=== PATIENT | female | born 1960 ===

== ENCOUNTER 2017-07-15 20:40 | Emergency (ER) | payer MEDICAID ==
[2017-07-15 20:40] VITALS: BMI 40.0
[2017-07-15 20:46] VITALS: TEMP 98
[2017-07-15] MEDS ORDERED: Oxycodone/Acetaminophen 5/325 mg Tab PO STA (21:03)
[2017-07-15] MEDS ORDERED: Oxycodone/Acetaminophen 5/325 mg Tab ONE (21:31)
[2017-07-15 22:05] LABS: BASO # 0.1 K/uL (0.0-0.2); BASO % 0.6 % (0.0-2.0); EOS # 0.1 K/uL (0.0-0.7); EOS % 0.6 % (0.0-4.0); HEMOGLOBIN 13.4 g/dL (12.0-16.0); LYMPH # 3.3 K/uL (1.0-4.3); LYMPH % 27.8 % (20.0-40.0); MEAN CELL VOLUME 71.4 fl (81.0-99.0); MEAN CORPUSCULAR HEMOGLOBIN 22.7 pg (27.0-31.0); MEAN CORPUSCULAR HGB CONC 31.9 g/dL (33.0-37.0); MEAN PLATELET VOLUME 7.4 fl (7.2-11.7); MONO # 0.8 K/uL (0.0-0.8); MONO % 6.8 % (0.0-10.0); NEUT # 7.5 K/uL (1.8-7.0); NEUT % 64.2 % (50.0-75.0); NRBC % 0.1 % (0.0-0.0); RBC 5.89 Mil/uL (3.80-5.20); RED CELL DISTRIBUTION WIDTH 14.7 % (11.5-14.5); WHITE BLOOD COUNT 11.7 K/uL (4.8-10.8)
--- NOTE | 2017-07-15 22:23 | CT ---
EXAM: CT Chest Without Intravenous Contrast CLINICAL HISTORY: 57 years old, female; Injury or trauma; Fall; Initial encounter; Blunt trauma (contusions or hematomas); Injury details: Fall about 2 days ago, left sided pain; Additional info: Left chest wall pain TECHNIQUE: Axial computed tomography images of the chest without intravenous contrast. All CT scans at this facility use one or more dose reduction techniques, viz.: automated exposure control; ma/kV adjustment per patient size (including targeted exams where dose is matched to indication; i.e. head); or iterative reconstruction technique. Coronal and sagittal reformatted images were created and reviewed. COMPARISON: CT abdomen pelvis 11/29/2014 FINDINGS: Limitations: Lack of intravenous contrast. Lungs: Minimal atelectasis/scarring. No consolidation. 0.2 cm RIGHT upper lobe nodule. Pleural space: No pneumothorax. No significant effusion. Heart: No cardiomegaly. No significant pericardial effusion. Mediastinum: Probable small hiatal hernia. Bones/joints: Probable bone island. Apparent subtle angulation anterior cortex of left anterior fourth, fifth ribs. Soft tissues: 3.6 x 2.0 cm fluid collection subjacent to midline anterior abdominal wall, incompletely imaged but present on previous examination. Interval development of few peripheral calcifications within collection. Vasculature: Unremarkable. No aneurysm. Lymph nodes: No pathologically enlarged lymph nodes. IMPRESSION: 1. No definite noncontrast CT evidence of visceral injury. 2. Probable nondisplaced left rib fractures. 3. Pulmonary nodule. For low-risk patients, no follow-up is necessary. For high-risk patients (smoking history or other known risk factors) an optional CT at 12 months could be performed. 4. Incidental/non-acute findings are described above.
[2017-07-15 22:25] LABS: BLOOD UREA NITROGEN 11 mg/dl (7-17); CALCIUM 9.9 mg/dL (8.4-10.2); GFR AFRICAN-AMERICAN > 60; GFR NON-AFRICAN AMERICAN > 60
[2017-07-15] MEDS ORDERED: Sodium Chloride 0.9% 1,000 ML IV STA (22:26)
--- NOTE | 2017-07-15 22:27 | ED PDOC ---
HPI: Chest Pain Time Seen by Provider: 07/15/17 20:48 Chief Complaint (Nursing): Chest Pain Chief Complaint (Provider): chest pain History Per: Patient History/Exam Limitations: no limitations Onset/Duration Of Symptoms: Days (x2) Current Symptoms Are (Timing): Still Present Quality: "Pain" Exacerbating Factors: Other (inspiration and coughing) Additional Complaint(s): Xochitl Bagley is a 57 year old female, with a past medical history of diabetes and bipolar disorder, who presents to the emergency department complaining of left sided chest pain onset for x2 days. Patient reports she fell into a sink cabinet x2 weeks ago. She was walking when she lost her balance and injured left lateral chest wall. Patient has had pain since and has gotten progressively worst. Patient further states pain is worst with inspiration and coughing. She reports extreme tenderness and sensitivity to chest wall in vicinity of injury. She denies any associated head injuries or loss of consciousness. No further medical complaints. PMD: Melissa Peguero Past Medical History Reviewed: Historical Data, Nursing Documentation, Vital Signs Vital Signs: Last Vital Signs Temp 98.0 F 07/15/17 20:42 Pulse 71 07/15/17 21:20 Resp 16 07/15/17 20:42 BP 137/85 07/15/17 20:42 Pulse Ox 96 07/16/17 00:11 - Medical History PMH: Anxiety, Bipolar Disorder, Depression, Diabetes, HTN, Schizophrenia Denies: HIV, Chronic Kidney Disease, Seizures, Sexually Transmitted Disease - Surgical History Surgical History: No Surg Hx - Family History Family History: States: Unknown Family Hx - Social History Current smoker - smoking cessation education provided: Yes (Heavy smoker >10 cigarettes daily) Alcohol: None Drugs: Denies - Immunization History Hx Tetanus Toxoid Vaccination: Yes (2012) Hx Influenza Vaccination: No Hx Pneumococcal Vaccination: No - Home Medications Home Medications: Ambulatory Orders Medication Instructions Recorded Lamotrigine [Lamictal] 200 mg PO HS #30 tab 08/30/14 clonazePAM [Klonopin] 0.5 mg PO HS 11/29/14 Ziprasidone [Geodon Cap] 80 mg PO HS 03/25/15 MetFORMIN [glucOPHAGE] 1,000 mg PO BID #20 tab 05/20/16 Aspirin 81 mg PO DAILY 10/03/16 Atorvastatin [Lipitor] 40 mg PO DAILY 10/03/16 Insulin Glargine,Hum.rec.anlog 100 unit SQ HS 10/03/16 [Basaglar Kwikpen U-100] Isosorbide Mononitrate [Isosorbide 30 mg PO DAILY 10/03/16 Mononitrate ER] Lisinopril [Zestril] 2.5 mg PO DAILY 10/03/16 Nitroglycerin 0.4 mg SL Q5M PRN MDD x3 10/03/16 SITagliptin [Januvia] 100 mg PO DAILY 10/03/16 traZODone [trazODONE HYDROCHLORIDE] 50 mg PO HS 10/03/16 Naproxen [Naprosyn] 1 tab PO BID PRN #20 tab 11/27/16 oxyCODONE/Acetaminophen [Percocet 1 ea PO Q6 PRN #12 tab 07/15/17 5/325 mg Tab] - Allergies Allergies/Adverse Reactions: Allergies Allergy/AdvReac Type Severity Reaction Status Date / Time Penicillins Allergy RASH Verified 07/15/17 20:42 Review of Systems ROS Statement: Except As Marked, All Systems Reviewed And Found Negative Constitutional: Negative for: Other (head injuries) Cardiovascular: Positive for: Chest Pain (left sided) Neurological: Negative for: Other (LOC) Physical Exam - Reviewed Nursing Documentation Reviewed: Yes Vital Signs Reviewed: Yes - Physical Exam Appears: Positive for: Non-toxic, Uncomfortable Head Exam: Positive for: ATRAUMATIC, NORMOCEPHALIC Skin: Positive for: Normal Color, Warm, Dry Eye Exam: Positive for: Normal appearance, EOMI, PERRL Neck: Positive for: Painless ROM, Supple Cardiovascular/Chest: Positive for: Regular Rate, Rhythm. Negative for: Chest Non Tender (Chest wall tenderness to ribs 4,5, & 6 along the anterior axillary line but no crepitus or deformity), Murmur Respiratory: Positive for: Normal Breath Sounds. Negative for: Respiratory Distress Gastrointestinal/Abdominal: Positive for: Normal Exam, Soft. Negative for: Tenderness Back: Negative for: L CVA Tenderness, R CVA Tenderness, Vertebral Tenderness Extremity: Positive for: Normal ROM (upper and lower extremities). Negative for : Deformity, Swelling Neurologic/Psych: Positive for: Alert, Oriented. Negative for: Motor/Sensory Deficits - Laboratory Results Result Diagrams: 07/15/17 21:56 06/06/18 21:56 - ECG O2 Sat by Pulse Oximetry: 96 (RA) Pulse Ox Interpretation: Normal Medical Decision Making Medical Decision Making: Time: 20:48 Initial Impression: 57 y/o female with left sided acute rib injury Initial Plan: --Chest w/o contrast [CT] --EKG --Alcohol serum --BMP --Drug screen, urine --Urine --Urine dipstick --CBC w/ differential --Percocet 5/325 mg tab 1 tab PO --Toradol 15 mg IVP --Reevaluation Time: 22:23 Chest w/o contrast [CT] FINDINGS: Limitations: Lack of intravenous contrast. Lungs: Minimal atelectasis/scarring. No consolidation. 0.2 cm RIGHT upper lobe nodule. Pleural space: No pneumothorax. No significant effusion. Heart: No cardiomegaly. No significant pericardial effusion. Mediastinum: Probable small hiatal hernia. Bones/joints: Probable bone island. Apparent subtle angulation anterior cortex of left anterior fourth, fifth ribs. Soft tissues: 3.6 x 2.0 cm fluid collection subjacent to midline anterior abdominal wall, incompletely imaged but present on previous examination. Interval development of few peripheral calcifications within collection. Vasculature: Unremarkable. No aneurysm. Lymph nodes: No pathologically enlarged lymph nodes. IMPRESSION: 1. No definite noncontrast CT evidence of visceral injury. 2. Probable nondisplaced left rib fractures. 3. Pulmonary nodule. For low-risk patients, no follow-up is necessary. For high- risk patients (smoking history or other known risk factors) an optional CT at 12 months could be performed. 4. Incidental/non-acute findings are described above. Time: 23:30 --Patient's accucheck improved after IV normal saline 1L and insulin 10 units. She reports she did not take her dosage of insulin today and states her condition has improved in the ED. Patient has a left sided rib fracture and is medically stable for discharge. ----- Scribe Attestation: Documented by Ck Garner, acting as a scribe for Madi Hanna MD. Provider Scribe Attestation: All medical record entries made by the Scribe were at my direction and personally dictated by me. I have reviewed the chart and agree that the record accurately reflects my personal performance of the history, physical exam, medical decision making, and the department course for this patient. I have also personally directed, reviewed, and agree with the discharge instructions and disposition. Disposition - Clinical Impression Clinical Impression: Hyperglycemia, Left rib fracture - Disposition Disposition Time: 23:30 Condition: IMPROVED Prescriptions: oxyCODONE/Acetaminophen [Percocet 5/325 mg Tab] 1 ea PO Q6 PRN #12 tab PRN Reason: rib pain Instructions: Rib Fractures in Adults, Hyperglycemia, Adult Forms: [facility] (Slovenian)
[2017-07-15] MEDS ORDERED: Morphine 4 MG/ML VIAL IVP ONE (22:40)
[2017-07-15] MEDS ORDERED: Morphine 4 MG/ML VIAL ONE (22:42)
[2017-07-15] MEDS ORDERED: Insulin Regular 100 units/ml IV ONE (22:43)
[2017-07-15] MEDS ORDERED: Insulin Regular 100 units/ml ONE (23:18)
[2017-07-15 23:19] LABS: BARBITURATES, UR NEGATIVE (NEGATIVE); BENZODIAZEPINES, UR NEGATIVE (NEGATIVE); OPIATES, UR NEGATIVE (NEGATIVE); PHENCYCLIDINE, UR NEGATIVE (NEGATIVE)
[2017-07-16 00:55] VITALS: PULSE 61; RESP 12; O2SAT 98
[2017-07-16 01:01] VITALS: BP 124/61
--- NOTE | 2017-07-16 17:10 | CARD ---
APPROVED REPORT EKG Measurement Heart [id number] <Conclusion> Normal sinus rhythm Possible Left atrial enlargement Borderline ECG
== END 2017-07-16 01:05 | disposition home or self-care (01) ==
LOC: H.ER 20:40
DX: S22.42XA Multiple fractures of ribs, left side, initial encounter for closed fracture (principal); W22.8XXA Striking against or struck by other objects, initial encounter; Y92.89 Other specified places as the place of occurrence of the external cause; E11.65 Type 2 diabetes mellitus with hyperglycemia; F17.210 Nicotine dependence, cigarettes, uncomplicated; F20.9 Schizophrenia, unspecified; F31.9 Bipolar disorder, unspecified; F41.9 Anxiety disorder, unspecified; I10 Essential (primary) hypertension; Z79.4 Long term (current) use of insulin; Z79.82 Long term (current) use of aspirin; Z88.0 Allergy status to penicillin
CPT/HCPCS: 71250; 80048; 80320; 80324; 80345; 80346; 80349; 80353; 80358; 80361; 81025; 82948; 83992; 85025; 93005; 96361; 96374; 96375; 99284; J1885; J2270; J7030

== ENCOUNTER 2017-11-02 12:55 | Emergency (ER) | payer MEDICAID ==
[2017-11-02 12:55] VITALS: BMI 40.0
[2017-11-02 13:27] VITALS: RESP 18
[2017-11-02] MEDS ORDERED: Sodium Chloride 0.9% 1,000 ML IV STA (13:32)
--- NOTE | 2017-11-02 13:39 | ED PDOC ---
HPI: Abdomen Time Seen by Provider: 11/02/17 13:26 Chief Complaint (Nursing): Abdominal Pain Chief Complaint (Provider): Abdominal Pain History Per: Patient History/Exam Limitations: no limitations Onset/Duration Of Symptoms: Days (x2) Current Symptoms Are (Timing): Still Present Additional Complaint(s): 57 year old female, with a history of colon resection (secondary to colon CA) and diabetes, presenting for evaluation of epigastric pain associated with vomiting x2 days. Patient denies any fever, diarrhea, or bloody stools. Past Medical History Reviewed: Historical Data, Nursing Documentation, Vital Signs Vital Signs: Last Vital Signs Temp 96 F L 11/02/17 13:25 Pulse 76 11/02/17 13:25 Resp 18 11/02/17 13:25 BP 126/79 11/02/17 13:25 Pulse Ox 98 11/02/17 13:46 - Medical History PMH: Anxiety, Bipolar Disorder, Depression, Diabetes, HTN, Malignancy (colon CA) , Schizophrenia Denies: HIV, Chronic Kidney Disease, Seizures, Sexually Transmitted Disease - Surgical History Other surgeries: Colon resection - Family History Family History: States: Unknown Family Hx - Immunization History Hx Tetanus Toxoid Vaccination: Yes (2012) Hx Influenza Vaccination: No Hx Pneumococcal Vaccination: No - Home Medications Home Medications: Ambulatory Orders Medication Instructions Recorded Lamotrigine [Lamictal] 200 mg PO HS #30 tab 08/30/14 clonazePAM [Klonopin] 0.5 mg PO HS 11/29/14 Ziprasidone [Geodon Cap] 80 mg PO HS 03/25/15 MetFORMIN [glucOPHAGE] 1,000 mg PO BID #20 tab 05/20/16 Aspirin 81 mg PO DAILY 10/03/16 Atorvastatin [Lipitor] 40 mg PO DAILY 10/03/16 Insulin Glargine,Hum.rec.anlog 100 unit SQ HS 10/03/16 [Basaglar Kwikpen U-100] Isosorbide Mononitrate [Isosorbide 30 mg PO DAILY 10/03/16 Mononitrate ER] Lisinopril [Zestril] 2.5 mg PO DAILY 10/03/16 Nitroglycerin 0.4 mg SL Q5M PRN MDD x3 10/03/16 SITagliptin [Januvia] 100 mg PO DAILY 10/03/16 traZODone [trazODONE HYDROCHLORIDE] 50 mg PO HS 10/03/16 Naproxen [Naprosyn] 1 tab PO BID PRN #20 tab 11/27/16 oxyCODONE/Acetaminophen [Percocet 1 ea PO Q6 PRN #12 tab 07/15/17 5/325 mg Tab] Pantoprazole Sodium [Protonix] 40 mg PO DAILY #30 tablet. 11/02/17 - Allergies Allergies/Adverse Reactions: Allergies Allergy/AdvReac Type Severity Reaction Status Date / Time Penicillins Allergy RASH Verified 07/15/17 20:42 Review of Systems ROS Statement: Except As Marked, All Systems Reviewed And Found Negative Constitutional: Negative for: Fever Gastrointestinal: Positive for: Nausea, Vomiting, Abdominal Pain. Negative for : Diarrhea, Hematochezia Physical Exam - Reviewed Nursing Documentation Reviewed: Yes Vital Signs Reviewed: Yes - Physical Exam Appears: Positive for: Non-toxic, No Acute Distress Head Exam: Positive for: ATRAUMATIC, NORMAL INSPECTION, NORMOCEPHALIC Skin: Positive for: Normal Color, Warm, Dry. Negative for: Rash Eye Exam: Positive for: EOMI, Normal appearance, PERRL ENT: Positive for: Normal ENT Inspection Neck: Positive for: Normal, Painless ROM, Supple Cardiovascular/Chest: Positive for: Regular Rate, Rhythm. Negative for: Murmur Respiratory: Positive for: Normal Breath Sounds. Negative for: Respiratory Distress Gastrointestinal/Abdominal: Positive for: Bowel Sounds, Tenderness (epigastric) , Distended (mild) Back: Positive for: Normal Inspection Extremity: Positive for: Normal ROM. Negative for: Tenderness, Pedal Edema, Swelling Neurologic/Psych: Positive for: Alert, Oriented. Negative for: Motor/Sensory Deficits - Laboratory Results Result Diagrams: 11/02/17 13:49 11/02/17 13:49 - ECG O2 Sat by Pulse Oximetry: 98 (RA) Pulse Ox Interpretation: Normal Medical Decision Making Medical Decision Makin Plan: -CT abdomen and pelvis w/o contrast -CMP -Udip -CBC -Morphine 2mg IVP -NS 1L IV at 100mL/hour -Pepcid 20mg IVP -Reevaluation Scribe Attestation: Documented by Crow Devries, acting as a scribe for Luis Stevens MD. Provider Scribe Attestation: All medical record entries made by the Scribe were at my direction and personally dictated by me. I have reviewed the chart and agree that the record accurately reflects my personal performance of the history, physical exam, medical decision making, and the department course for this patient. I have also personally directed, reviewed, and agree with the discharge instructions and disposition. Disposition - Clinical Impression Clinical Impression: Gastritis - Patient ED Disposition Is Patient to be Admitted: No Counseled Patient/Family Regarding: Studies Performed, Diagnosis, Need For Followup, Rx Given - Disposition Referrals: Mika Duran MD, PhD [Staff Provider] - Disposition: Routine/Home Disposition Time: 16:15 Condition: FAIR Prescriptions: Pantoprazole Sodium [Protonix] 40 mg PO DAILY #30 tablet.dr Instructions: Gastritis Forms: [facility] (Latvian)
[2017-11-02 14:05] LABS: BASO # 0.1 K/uL (0.0-0.2); BASO % 0.8 % (0.0-2.0); EOS % 0.5 % (0.0-4.0); HEMOGLOBIN 13.2 g/dL (12.0-16.0); LYMPH # 2.9 K/uL (1.0-4.3); LYMPH % 33.5 % (20.0-40.0); MEAN CELL VOLUME 71.2 fl (81.0-99.0); MEAN CORPUSCULAR HEMOGLOBIN 23.3 pg (27.0-31.0); MEAN CORPUSCULAR HGB CONC 32.7 g/dL (33.0-37.0); MEAN PLATELET VOLUME 7.1 fl (7.2-11.7); MONO # 0.6 K/uL (0.0-0.8); MONO % 6.4 % (0.0-10.0); NEUT % 58.8 % (50.0-75.0); NRBC % 0.1 % (0.0-0.0); RBC 5.65 Mil/uL (3.80-5.20); RED CELL DISTRIBUTION WIDTH 15.2 % (11.5-14.5); WHITE BLOOD COUNT 8.6 K/uL (4.8-10.8)
[2017-11-02 14:26] LABS: ALB/GLOB RATIO 1.1 (1.0-2.1); ALT/SGPT 28 U/L (9-52); AST/SGOT 22 U/L (14-36); BLOOD UREA NITROGEN 10 mg/dl (7-17); CALCIUM 9.6 mg/dL (8.4-10.2); GFR NON-AFRICAN AMERICAN > 60
--- NOTE | 2017-11-02 15:47 | CT ---
Date of service: 11/02/2017 PROCEDURE: CT Abdomen and Pelvis without intravenous contrast HISTORY: r/o kidney stone COMPARISON: CT scan of the abdomen pelvis dated 11/29/2014. TECHNIQUE: Contiguous images were obtained from the domes of the diaphragms to the upper thighs without the administration of intravenous contrast. Oral contrast was not administered. Radiation dose: Total exam DLP = 564.6 mGy-cm. This CT exam was performed using one or more of the following dose reduction techniques: Automated exposure control, adjustment of the mA and/or kV according to patient size, and/or use of iterative reconstruction technique. FINDINGS: LOWER THORAX: Unremarkable. LIVER: Unremarkable. No gross lesion or ductal dilatation. GALLBLADDER AND BILE DUCTS: Unremarkable. PANCREAS: Unremarkable. No gross lesion or ductal dilatation. SPLEEN: Unremarkable. ADRENALS: Unremarkable. No mass. KIDNEYS AND URETERS: Unremarkable. No hydronephrosis. No solid mass. VASCULATURE: Unremarkable. No aortic aneurysm. BOWEL: Prior left colonic bowel surgery. Prominent amount of retained colonic stool. No obstruction. No gross mural thickening. APPENDIX: Unremarkable. Normal appendix. PERITONEUM: Stable appearance of 3.6 x 2.0 cm chronic fluid collection subjacent to the midline incisional abdominal wall scar. No free fluid. No free air. LYMPH NODES: Unremarkable. No enlarged lymph nodes. BLADDER: Unremarkable. REPRODUCTIVE: Prominent fundal fibroid redemonstrated. BONES: No acute fracture. OTHER FINDINGS: None. IMPRESSION: No obstructive uropathy or evidence of recently passed genitourinary calculus. Prominent amount of retained colonic stool. Stable appearance of chronic fluid collection subjacent to the midline incisional abdominal wall scar. Additional stable findings as above.
[2017-11-02] MEDS ORDERED: Morphine 4 MG/ML VIAL ONE (15:53)
[2017-11-02 16:30] VITALS: BP 137/72; PULSE 74; TEMP 98.2; O2SAT 96
== END 2017-11-02 16:28 | disposition home or self-care (01) ==
LOC: H.ER 12:55
DX: K29.70 Gastritis, unspecified, without bleeding (principal); E11.9 Type 2 diabetes mellitus without complications; Z86.59 Personal history of other mental and behavioral disorders; I10 Essential (primary) hypertension; Z79.4 Long term (current) use of insulin; Z79.82 Long term (current) use of aspirin; Z85.038 Personal history of other malignant neoplasm of large intestine; Z88.0 Allergy status to penicillin; Z90.49 Acquired absence of other specified parts of digestive tract
CPT/HCPCS: 74176; 80053; 83690; 85025; 96361; 96374; 96375; 96376; 99284; J2270; J7030